=== PATIENT | female | born 1965 | race Two or more races ===

== ENCOUNTER 2017-11-06 13:13 | Emergency (ER) | payer OTHER ==
[2017-11-06 13:20] VITALS: BP 143/81; PULSE 67; TEMP 97.9; BMI 36.6
[2017-11-06] MEDS ORDERED: IBUPROFEN 400 MG TABLET (FP) PO ONE ×2 (14:27→14:36)
[2017-11-06] MEDS ORDERED: AMOX TR/POT CLAV 875MG/125MG TABLETS (FP) PO ONE (14:27)
--- NOTE | 2017-11-06 14:27 | PDOC ---
History of Present Illness - General Chief Complaint: Headache Stated Complaint: HEADACHE Time Seen by Provider: 11/06/17 14:10 Past History - Past Medical History Allergies/Adverse Reactions: Allergies Allergy/AdvReac Type Severity Reaction Status Date / Time No Known Allergies Allergy Verified 11/06/17 13:16 Home Medications: Ambulatory Orders Nitrofurantoin Monohyd/M-Cryst [Macrobid -] 100 mg PO BID #14 capsule 06/21/17 CVA: No COPD: No DVT: No Dementia: No - Immunization History Immunization Up to Date: Yes - Suicide/Smoking/Psychosocial Hx Smoking History: Never smoked Have you smoked in the past 12 months: No Information on smoking cessation initiated: No Hx Alcohol Use: No Drug/Substance Use Hx: No Substance Use Type: None *Physical Exam - Vital Signs Last Vital Signs Temp Pulse Resp BP Pulse Ox 97.9 F 67 16 143/81 97 11/06/17 13:16 11/06/17 13:16 11/06/17 13:16 11/06/17 13:16 11/06/17 13:16 *DC/Admit/Observation/Transfer Diagnosis at time of Disposition: Sinus infection Qualifiers: Sinusitis location: frontal Chronicity: acute Recurrence: non-recurrent Qualified Code(s): J01.10 - Acute frontal sinusitis, unspecified - Discharge Dispostion Disposition: HOME Condition at time of disposition: Stable Admit: No - Referrals Referrals: Carlos Horton MD [Staff Physician] - - Patient Instructions Printed Discharge Instructions: DI for Sinusitis Additional Instructions: Usted tiene simi infeccin sinusal. [place] est causando baum dolor de matt. Por favor, tome Augmentin dos veces al da charles simi semana para ayudarla con nishant sntomas. Tambin puede madisyn Mucinex para ayudar con la descongestin. Le du enviado recetas para ambos. Las duchas calientes y calientes tambin pueden ayudar al dolor. Tambin puede madisyn ibuprofeno 800 mg 3 veces al da para el dolor. Dada un seguimiento con simi referencia provista para usted si nishant s ntomas no mejoran. Regrese al servicio de urgencias si tiene un empeoramiento del dolor, entumecimiento y hormigueo en la ailyn, o cualquier cambio en nishant sntomas. You have a sinus infection. This is causing her headache. Please take the Augmentin twice a day for a week to help with her symptoms. He may also take Mucinex to help with decongestion. You have been sent prescriptions for both. Warm steamy showers may also help the pain. He may take ibuprofen 800 mg 3 times a day for the pain as well. Follow-up with a referral provided for you if her symptoms are not getting better. Return to the emergency department if you have worsening pain, numbness and tingling of the face, or any changes in her symptoms. - Post Discharge Activity
[2017-11-06] MEDS ORDERED: AMOX TR/POT CLAV 875MG/125MG TABLETS (FP) ONE (14:36)
--- NOTE | 2017-11-06 14:36 | PDOC ---
*Physical Exam - Vital Signs Last Vital Signs Temp Pulse Resp BP Pulse Ox 97.9 F 67 16 143/81 97 11/06/17 13:16 11/06/17 13:16 11/06/17 13:16 11/06/17 13:16 11/06/17 13:16 ED Treatment Course - Medications Given in the ED: ED Medications Discontinued Medications Generic Name Dose Route Start Last Admin Trade Name Freq PRN Reason Stop Dose Admin Amoxicillin/Clavulanate Potassium 1 tab 11/06/17 14:27 11/06/17 14:32 Augmentin - 875mg Tablet PO 11/06/17 14:28 1 tab ONCE ONE Administration Ibuprofen 800 mg 11/06/17 14:27 11/06/17 14:32 Motrin - PO 11/06/17 14:28 800 mg ONCE ONE Administration Medical Decision Making - Medical Decision Making 11/06/17 14:36 Pt seen by the Advanced Practice Provider under my direct supervision Ancillary studies reviewed I agree with plan as outlined by the Advanced Practice Provider BAYLEE Carlos *DC/Admit/Observation/Transfer Diagnosis at time of Disposition: Sinus infection - Discharge Dispostion Disposition: HOME Condition at time of disposition: Stable - Prescriptions Prescriptions: Amox-Tr/K Cl [Augmentin - 875Mg Tablet] 1 tab PO BID #14 tablet - Referrals Referrals: Carlos Horton MD [Staff Physician] - - Patient Instructions Printed Discharge Instructions: DI for Sinusitis Additional Instructions: Usted tiene simi infeccin sinusal. [place] est causando baum dolor de matt. Por favor, tome Augmentin dos veces al da charlse simi semana para ayudarla con nishant sntomas. Tambin puede madisyn Mucinex para ayudar con la descongestin. Le du enviado recetas para ambos. Las duchas calientes y calientes tambin pueden ayudar al dolor. Tambin puede madisyn ibuprofeno 800 mg 3 veces al da para el dolor. Dada un seguimiento con simi referencia provista para usted si nishant s ntomas no mejoran. Regrese al servicio de urgencias si tiene un empeoramiento del dolor, entumecimiento y hormigueo en la ailyn, o cualquier claudia en nishant sntomas. You have a sinus infection. This is causing her headache. Please take the Augmentin twice a day for a week to help with her symptoms. He may also take Mucinex to help with decongestion. You have been sent prescriptions for both. Warm steamy showers may also help the pain. He may take ibuprofen 800 mg 3 times a day for the pain as well. Follow-up with a referral provided for you if her symptoms are not getting better. Return to the emergency department if you have worsening pain, numbness and tingling of the face, or any changes in her symptoms. - Post Discharge Activity
== END 2017-11-06 15:36 | disposition home or self-care (01) ==
LOC: JER 13:13
DX: J01.10 Acute frontal sinusitis, unspecified (principal)
CPT/HCPCS: 99282-25

== ENCOUNTER 2022-07-03 10:48 | Emergency (ER) | payer OTHER ==
[2022-07-03 10:55] VITALS: BP 129/68; PULSE 65; RESP 18; TEMP 98.2; BMI 26.7
== END 2022-07-03 14:25 | disposition home or self-care (01) ==
LOC: JERFT 10:48 → JER 10:48 → JERFT 14:25
DX: R09.89 Other specified symptoms and signs involving the circulatory and respiratory systems (principal)
CPT/HCPCS: 70360-TC-FY; 99283-25